=== PATIENT | female | born 1980 | race African-American/Black ===

== ENCOUNTER 2020-06-06 03:08 | Emergency (ER) | payer BC ==
[2020-06-06] MEDS ORDERED: Acetaminophen 500 MG TAB ONE (03:38)
[2020-06-06 03:39] LABS: #Lymphocytes 1.5 thou/uL (1.20-3.40); #Monocytes 0.4 thou/uL (0.11-0.59); %Eosinophils 0.3 % (0.0-10.0); %Lymphocytes 38.6 % (21.0-51.0); %Monocytes 9.1 % (0.0-10.0); %Neutrophils 51.1 % (42.0-75.0); Hemoglobin 11.5 g/dL (12.0-16.0); Mean Corpuscular HGB CONC 33.7 g/dL (32.0-36.0); Mean Corpuscular Hemoglobin 30.1 pg (27.0-31.0); Mean Corpuscular Volume 89.3 fL (78.0-98.0); Mean Platelet Volume 8.7 fL (7.4-10.4); Platelet Count 161 thou/uL (130-400); RBC Distribution Width 12.2 % (11.5-14.5); Red Blood Cell (RBC) Count 3.81 mill/uL (4.20-5.40); White Blood Cell (WBC) Count 3.9 thou/uL (4.8-10.8)
[2020-06-06 04:09] LABS: ALT (SGPT) 34 U/L (8-55); AST (SGOT) 32 U/L (5-34); Albumin 3.8 g/dL (3.5-5.0); Alkaline Phosphatase 63 U/L (40-110); Anion Gap 13 mmol/L (10-20); BUN (Urea Nitrogen) 6 mg/dL (7.0-18.7); Bilirubin, Total 0.6 mg/dL (0.2-1.2); Calc. Creatinine Clearance 0 mL/min (70-130); Calcium 8.4 mg/dL (7.8-10.44); Carbon Dioxide 24 mmol/L (22-29); Chloride 103 mmol/L (98-107); Globulin 3.5 g/dL (2.4-3.5); Glucose 161 mg/dL (70-105); Potassium 3.7 mmol/L (3.5-5.1); Protein, Total 7.3 g/dL (6.0-8.3); Sodium 136 mmol/L (136-145)
--- NOTE | 2020-06-06 08:46 | RAD ---
EXAM: Portable chest PROVIDED CLINICAL HISTORY: Fever COMPARISON: None FINDINGS: Cardiac and mediastinal silhouette is within normal limits. No focal consolidation, pleural fluid or pneumothorax evident. IMPRESSION: No evidence for an acute cardiopulmonary process.
[2020-06-06 09:05] LABS: SARS-CoV-2 PCR by NAA DETECTED (NotDetected)
== END 2020-06-06 04:45 | disposition home or self-care (01) ==
LOC: ERS 03:08
DX: U07.1 COVID-19 (principal); E11.9 Type 2 diabetes mellitus without complications; E66.9 Obesity, unspecified
CPT/HCPCS: 36415; 71045; 80053; 85025; 87635; 93005; U0003; U0005

== ENCOUNTER 2020-06-08 00:44 | Emergency (ER) | payer BC ==
[2020-06-08] MEDS ORDERED: Ondansetron ODT 4 MG TAB ONE (01:03)
[2020-06-08] MEDS ORDERED: Ibuprofen 200 MG TAB ONE (01:03)
== END 2020-06-08 02:14 | disposition home or self-care (01) ==
LOC: ERS 00:44
DX: U07.1 COVID-19 (principal); E11.9 Type 2 diabetes mellitus without complications; E66.9 Obesity, unspecified
CPT/HCPCS: 99283; Q0162

== ENCOUNTER 2020-08-14 08:34 | Outpatient (CLI) | payer BC | END 2020-08-14 08:35 | disposition home or self-care (01) | LOC: BICMAMMO 08:34 | PROVIDERS: ATTEND Nurse Practitioner Family | DX: Z12.31 Encounter for screening mammogram for malignant neoplasm of breast (principal) | CPT/HCPCS: 77063; 77067 ==